=== PATIENT | female | born 1950 | race Caucasian/White ===

== ENCOUNTER → 2017-01-27 | Outpatient (CLI) | payer OTHER ==
--- NOTE | 2017-01-27 13:23 | RAD ---
DATE: 01/27/2017 EXAM: DIGITAL SCREEN BILAT W/CAD HISTORY: Screening COMPARISON: 01/01/2016 This study was interpreted with the benefit of Computerized Aided Detection (CAD ). FINDINGS: Breast Density: FATTY The Breast Parenchyma is primarily fatty replaced. Breast parenchyma level density A.. There has not been a significant change in the appearance of the breasts compared to the previous exam IMPRESSION: Benign findings BI-RADS CATEGORY: 2 BENIGN FINDING(S) RECOMMENDED FOLLOW-UP: 12M 12 MONTH FOLLOW-UP PQRS compliance statement: Patient information was entered into a reminder system with a target due date 01/27/2018 for the next mammogram. Mammography is a sensitive method for finding small breast cancers, but it does not detect them all and is not a substitute for careful clinical examination. A negative mammogram does not negate a clinically suspicious finding and should not result in delay in biopsying a clinically suspicious abnormality. "Our facility is accredited by the [employer] Mammography [employer]." ROMULOD
== END | disposition home or self-care (01) ==
LOC: MAMMO 08:50
PROVIDERS: ATTEND Obstetrics & Gynecology
DX: Z12.31 Encounter for screening mammogram for malignant neoplasm of breast (principal)
CPT/HCPCS: G0202; 77067

== ENCOUNTER → 2018-02-17 | Outpatient (CLI) | payer MEDICARE, OTHER ==
--- NOTE | 2018-02-17 15:26 | RAD ---
DATE: 02/17/2018 EXAM: DIGITAL SCREEN BILAT W/CAD HISTORY: Routine screening. COMPARISON: 2017 and 2016 mammogram This study was interpreted with the benefit of Computerized Aided Detection (CAD). FINDINGS: Breast Density: SCATTERED The breast parenchyma shows scattered fibroglandular densities. Breast parenchyma level B. The skin and nipples are within normal limits. No suspicious calcifications, spiculated masses or areas of architectural distortion. Benign-appearing bilateral calcifications. IMPRESSION: No mammographic evidence of malignancy. Stable mammogram. BI-RADS CATEGORY: 2 BENIGN FINDING(S) RECOMMENDED FOLLOW-UP: 12M 12 MONTH FOLLOW-UP PQRS compliance statement: Patient information was entered into a reminder system with a target due date for the next mammogram. Mammography is a sensitive method for finding small breast cancers, but it does not detect them all and is not a substitute for careful clinical examination. A negative mammogram does not negate a clinically suspicious finding and should not result in delay in biopsying a clinically suspicious abnormality. "Our facility is accredited by the [employer] Mammography [employer]."
== END | disposition home or self-care (01) ==
LOC: MAMMO 08:22
PROVIDERS: ATTEND Obstetrics & Gynecology
DX: Z12.31 Encounter for screening mammogram for malignant neoplasm of breast (principal)
CPT/HCPCS: 77067

== ENCOUNTER → 2019-02-17 | Outpatient (CLI) | payer MEDICARE, OTHER ==
--- NOTE | 2019-02-18 09:02 | RAD ---
DATE: 02/17/2019 10:52 AM EXAM: DIGITAL SCREEN BILAT W/CAD HISTORY screening mammogram COMPARISON: February 17, 2018, January 01, 2016, January 27, 2017. Bilateral CC and MLO views of the breasts were performed. This study was interpreted with the benefit of Computerized Aided Detection (CAD). FINDINGS: Breast Density: SCATTERED The breast parenchyma shows scattered fibroglandular densities. Breast parenchyma level B Several left breast masses, unchanged compared to prior mammograms. Benign calcifications bilaterally, unchanged. No suspicious masses, microcalcifications or architectural distortion is present to suggest malignancy in either breast. The visualized axillae are unremarkable. IMPRESSION: Stable bilateral mammograms. BI-RADS CATEGORY: 2 BENIGN FINDING(S) RECOMMENDED FOLLOW-UP: 12M 12 MONTH FOLLOW-UP Annual screening mammography is recommended, unless clinically indicated sooner based on symptoms or change in physical exam. PQRS compliance statement: Patient information was entered into a reminder system with a target due date one year for the next mammogram. Mammography is a sensitive method for finding small breast cancers, but it does not detect them all and is not a substitute for careful clinical examination. A negative mammogram does not negate a clinically suspicious finding and should not result in delay in biopsying a clinically suspicious abnormality. "Our facility is accredited by the [employer] Mammography [employer]."
== END | disposition home or self-care (01) ==
LOC: MAMMO 10:40
PROVIDERS: ATTEND Obstetrics & Gynecology
DX: Z12.31 Encounter for screening mammogram for malignant neoplasm of breast (principal); N63.20 Unspecified lump in the left breast, unspecified quadrant; N64.89 Other specified disorders of breast
CPT/HCPCS: 77067

== ENCOUNTER → 2020-02-28 | Outpatient (CLI) | payer MEDICARE, OTHER ==
--- NOTE | 2020-02-28 14:05 | RAD ---
Examination: Left breast ultrasound INDICATION: Screening recall for developing mass in the anterior upper outer left breast. COMPARISON: 02/21/2020 bilateral mammogram TECHNIQUE: Grayscale and color Doppler imaging of the left breast focused in the anterior upper outer left breast was performed FINDINGS: At the left 2:00 position 3 cm from the nipple a 6 mm parallel orientation hypoechoic mass with an echogenic halo and minimal posterior acoustic shadowing is identified that likely correlates with the mammographic finding recalled from screening. Sonographic survey of the left axilla reveals no adenopathy. The subareolar regions unremarkable as well. IMPRESSION: Low index of suspicion for malignancy but suspicious 6 mm mass in the upper outer anterior left breast. Recommend ultrasound-guided core needle biopsy. BI-RADS Category 4 Findings suspicious for malignancy Recommend biopsy Discussed with patient in person prior to her discharge from the imaging suite and report telephoned to the ordering provider's office where Melody the medical billing assistant to Mery Rubin NP took the telephone report on her behalf at 1:34 PM 02/28/2020.
== END ==
LOC: US 10:38
PROVIDERS: ATTEND Clinical Nurse Specialist Family Health
DX: R92.8 Other abnormal and inconclusive findings on diagnostic imaging of breast (principal); N63.21 Unspecified lump in the left breast, upper outer quadrant
CPT/HCPCS: 76641

== ENCOUNTER → 2020-03-20 | Outpatient (CLI) | payer MEDICARE, OTHER ==
--- NOTE | 2020-03-20 15:54 | RAD ---
EXAMINATION: 1. Ultrasound-guided left breast core needle biopsy. 2. Left digital postprocedure mammogram. INDICATION: 6 mm mass in the upper outer left breast recommended for ultrasound-guided core needle biopsy after recall from screening. Low index of suspicion for malignancy. COMPARISON: Screening mammograms of 02/17/2019 and 02/21/2020. Left breast ultrasound of 02/28/2020. TECHNIQUE AND FINDINGS: Informed consent was obtained and an appropriate procedural pause observed. Using standard sterile technique, ultrasound guidance and local anesthesia, multiple 14-gauge core biopsy samples of the 6 mm mass in the anterior upper outer left breast at the 2:00 position 3 cm from the nipple were obtained and an S-shaped biopsy marker was deployed. Hemostasis was ensured with direct breast compression for 10 minutes, puncture site was dressed, and a post procedure mammogram was obtained. The post procedure mammogram shows successful deployment of the biopsy marker in the left breast and decreased conspicuity of the mammographic mass. No postbiopsy hematoma. IMPRESSION: Successful ultrasound-guided left breast core needle biopsy. Pathology results pending. An addendum will be issued once pathology results become available. Electronically signed by: Shima Hutson MD (03/20/2020 3:51 PM) [id number]
--- NOTE | 2020-03-21 13:11 | PATHOLOGY ---
[facility] Accession Number: [id number] . 01 Material submitted: . breast - LEFT BREAST TISSUE, 2:00, 3CMFN. Modifiers: left, 2:00 . 01 Clinical history: . ABNORMAL LEFT MAMMOGRAM . 02 Diagnosis: Breast tissue, left breast mass 2:00 needle biopsies: - Stromal fibrosis and focal mild duct ectasia. (JPM:jayde; 03/21/2020) QMS 03/21/2020 0850 Local . 02 Comment: Sections of the left breast mass at 2:00 needle biopsy reveal foci of stromal fibrosis and focal mild duct ectasia. There is no evidence of malignancy. Please correlate with radiographic findings. (JPM:jayde; 03/21/2020) . 02 Electronically signed: . Guy Salomon MD, Pathologist NPI- [id number] . 01 Gross description: . The specimen is received in formalin, labeled "Bambi Leigh, left breast 2:00 3 cm FN" and consists of 4 needle cores of pink-gil tissue measuring between 0.2 cm and 0.8 cm in length and 0.2 cm each in diameter which are entirely submitted in A1-A3. The specimen was collected at 11:14 AM on 03/20/2020 and placed in formalin at 11:16 AM. The cold ischemic time is 2 minutes and the total formalin fixation time is greater than 6 hours less than 72 hours. (SDY; 03/20/2020) SYU/SYU 03/20/2020 1632 Local . 02 Pathologist provided ICD-10: N60.32, N60.42 . 02 CPT . 883928 Specimen Comment: A courtesy copy of this report has been sent to [phone] Specimen Comment: [id number] Specimen Comment: Report sent to / DR SMITH Performed at: 01 [facility] [address], [place] [id number] MD Jose Stubbs MD Phone: [phone] Performed at: 02 [facility] [address] [address] [place], [place] [id number] MD Guy Salomon MD Phone: [phone]
== END | disposition home or self-care (01) ==
LOC: US 10:15
PROVIDERS: ATTEND Clinical Nurse Specialist Family Health
DX: R92.8 Other abnormal and inconclusive findings on diagnostic imaging of breast (principal); N60.32 Fibrosclerosis of left breast; N60.42 Mammary duct ectasia of left breast; Z79.899 Other long term (current) drug therapy
CPT/HCPCS: 19083; 77065; 88305; C1713; 19081; 76942

== ENCOUNTER → 2021-02-22 | Outpatient (CLI) | payer MEDICARE, OTHER ==
--- NOTE | 2021-02-22 14:23 | RAD ---
BILATERAL SCREENING MAMMOGRAM History: Routine screening. The patient underwent ultrasound-guided biopsy of a left breast abnormali ty on 03/20/2020 which was benign. Comparison: Most recent screening mammogram 02/21/2020. Technique: Routine 2D and 3D tomosynthesis digital mammogram views were obtained bilaterally. Interpr etation was assisted with the use of computer-aided detection. Findings: Breast Tissue Density B : There are scattered areas of fibroglandular density. There are no dominant masses, suspicious microcalcifications, or architectural distortion. Several m asses within both breasts are unchanged. Biopsy clip now seen on the left. IMPRESSION: No mammographic evidence of malignancy. Recommend routine screening mammography in one year. BI-RADS category 2: Benign findings. Patient information is entered into the reminder system with a target due date for the next screening mammogram. "Our facility is accredited by the [employer] Mammography [employer]." Electronically signed by: CHAR ROJO MD (02/22/2021 2:21 PM) [id number]
== END ==
LOC: MAMMO 09:19
PROVIDERS: ATTEND Clinical Nurse Specialist Family Health
DX: Z12.31 Encounter for screening mammogram for malignant neoplasm of breast (principal)
CPT/HCPCS: 77063; 77067